=== PATIENT | female | born 1985 | race Asian ===

== ENCOUNTER 2024-07-21 10:42 | Inpatient (IN) | payer OTHER ==
[~2024-07-21] VITALS: Ht 160 cm; Wt 46.7 kg
[2024-07-21] MEDS: LACTATED RINGERS 1,000 ML IV SCH (11:25)
[2024-07-21] MEDS: AZITHROMYCIN 500 MG TABLET PO ONE (11:25)
[2024-07-21 11:27] LABS: BASOPHILS % 0.6 % (0.0-2.0); EOSINOPHILS % 2.5 % (0.0-5.0); HEMATOCRIT. 41.8 % (36.0-48.0); HEMOGLOBIN. 14.2 g/dL (12.0-16.0); LYMPHOCYTES % 15.8 % (20.0-50.0); MEAN CORPUSCULAR HGB CONC 33.9 g/dL (31.0-37.0); MEAN CORPUSCULAR VOLUME 91.5 fL (81.0-99.0); MEAN PLATELET VOLUME 8.7 fl (7.4-10.4); MONOCYTES % 6.2 % (2.0-8.0); NEUTROPHILS % 74.9 % (40.0-76.0); PLATELET 228 x1000/uL (130-400); RED BLOOD CELL COUNT 4.57 mill/uL (4.2-5.4); WHITE BLOOD COUNT 8.4 x1000/uL (4.5-11.0)
[2024-07-21 11:38] LABS: HCG SCREEN NEGATIVE
[2024-07-21 11:45] LABS: CHLORIDE 103 mEq/L (98-107); SODIUM 138 mEq/L (136-145)
[2024-07-21 11:47] LABS: CARBON DIOXIDE 20 mEq/L (21-32)
[2024-07-21 11:52] LABS: CREATININE 0.9 mg/dL (0.6-1.0); GLUCOSE 74 mg/dL (70-105); UREA NITROGEN BLOOD 18 mg/dL (9-23)
[2024-07-21 11:54] LABS: ALANINE AMINOTRANSFERASE 9 IU/L (10-49); ASPARTATE AMINOTRANSFERASE 14 IU/L (<34); BILIRUBIN DIRECT 0.4 mg/dL (<=3.0); BILIRUBIN TOTAL 1.9 mg/dL (0.1-1.0); PROTEIN TOTAL 8.1 g/dL (6.0-8.3)
[2024-07-21] MEDS ORDERED: CLONIDINE 0.1MG TABLET PO PRN (12:30)
[2024-07-21] MEDS ORDERED: ZOLPIDEM TARTRATE 5MG TABLET PO PRN (12:30)
[2024-07-21] MEDS ORDERED: ACETAMINOPHEN 325MG TABLET PO PRN (12:30)
[2024-07-21] MEDS ORDERED: NALOXONE HCL 0.4MG/ML VIAL IV PRN (13:00)
[2024-07-21] MEDS: PANTOPRAZOLE SODIUM 40 MG/VIAL IV SCH (13:24)
[2024-07-21] MEDS: ENOXAPARIN 40MG/0.4ML SYR SUBCUT SCH (13:24)
[2024-07-21] MEDS: SODIUM CHLORIDE 0.9% 1,000 ML IV SCH (13:26)
[2024-07-21] MEDS: AZITHROMYCIN 500MG/250ML 250 ML IV SCH (13:38)
[2024-07-21 14:00] VITALS: BP 98/66; PULSE 93; RESP 18; TEMP 36
[2024-07-21] MEDS: HYDROCODONE/ACETAMINOPHEN 5/325MG TABLET PO PRN (15:14)
[2024-07-21] MEDS: ONDANSETRON HCL 4MG/2ML INJ IV PRN (15:19)
[2024-07-21 16:00] VITALS: BP 97/55; PULSE 79; RESP 17; TEMP 36.6; O2SAT 100
[2024-07-21 19:14] LABS: HEPATITIS B SURFACE ANTIGEN NEGATIVE (Negative)
[2024-07-21 19:36] LABS: HEPATITIS A AB IGM NEGATIVE (Negative)
[2024-07-21 19:37] LABS: HEPATITIS B CORE AB IGM NEGATIVE (Negative)
[2024-07-21 19:38] LABS: HEPATITIS C AB NON REACTIVE (Neg) (Negative)
[2024-07-21 20:00] VITALS: BP 99/44; PULSE 76; RESP 18; TEMP 36.7; O2SAT 100
[2024-07-21 20:40] VITALS: BP 90/60; PULSE 72; RESP 18; TEMP 36.5
[2024-07-22] VITALS: BP 96/50; PULSE 73; RESP 18; TEMP 36.6
[2024-07-22 04:00] VITALS: BP 99/53; PULSE 82; RESP 18; TEMP 36.7
[2024-07-22 06:54] LABS: BASOPHILS % 0.5 % (0.0-2.0); EOSINOPHILS % 2.8 % (0.0-5.0); HEMATOCRIT. 31.9 % (36.0-48.0); HEMOGLOBIN. 10.8 g/dL (12.0-16.0); LYMPHOCYTES % 23.2 % (20.0-50.0); MEAN CORPUSCULAR HEMOGLOBIN 31.7 pg (28.0-32.0); MEAN CORPUSCULAR HGB CONC 33.8 g/dL (31.0-37.0); MEAN CORPUSCULAR VOLUME 93.9 fL (81.0-99.0); MEAN PLATELET VOLUME 8.5 fl (7.4-10.4); MONOCYTES % 7.6 % (2.0-8.0); NEUTROPHILS % 65.9 % (40.0-76.0); PLATELET 163 x1000/uL (130-400); RED CELL DISTRIBUTION WIDTH 13.2 % (11.6-14.6)
[2024-07-22 07:03] LABS: CARBON DIOXIDE 19 mEq/L (21-32); CHLORIDE 110 mEq/L (98-107); POTASSIUM 4.2 mEq/L (3.5-5.1); SODIUM 141 mEq/L (136-145)
[2024-07-22 07:03] LABS: CLARITY URINE CLEAR (CLEAR); COLOR URINE YELLOW (YELLOW); GLUCOSE URINE NEGATIVE (NEGATIVE); KETONES URINE 3+ (NEGATIVE); LEUKOCYTE ESTERASE URINE NEGATIVE (NEGATIVE); NITRITE URINE NEGATIVE (NEGATIVE); OCCULT BLOOD URINE NEGATIVE (NEGATIVE); PROTEIN URINE NEGATIVE (NEGATIVE); SPECIFIC GRAVITY URINE 1.014 (1.005-1.030); UROBILINOGEN URINE 0.2 E.U./dL (0.2-1.0)
[2024-07-22 07:04] LABS: CALCIUM 8.4 mg/dL (8.7-10.4)
[2024-07-22 07:04] LABS: UCG KIT EXPIRATION DATE 11/27/2026; UCG KIT LOT# 946166; UCG SCREEN NEGATIVE
[2024-07-22 07:08] LABS: CREATININE 0.7 mg/dL (0.6-1.0); GLUCOSE 72 mg/dL (70-105)
[2024-07-22 07:09] LABS: UREA NITROGEN BLOOD 8 mg/dL (9-23)
[2024-07-22 07:21] LABS: *AMPHETAMINES SCREEN URINE NEGATIVE (NEGATIVE); *BARBITURATES SCREEN URINE NEGATIVE (NEGATIVE); *BENZODIAZEPINES SCREEN URINE NEGATIVE (NEGATIVE); *COCAINE SCREEN URINE NEGATIVE (NEGATIVE); CANNABINOID URINE SCREEN NEGATIVE (NEGATIVE); ECSTASY MDMA SCREEN URINE NEGATIVE (NEGATIVE); METHADONE URINE SCREEN NEGATIVE (NEGATIVE); OPIATES URINE SCREEN PRESUMPTIVE POSITIVE (NEGATIVE); PHENCYCLIDINE URINE SCREEN NEGATIVE (NEGATIVE)
[2024-07-22 08:00] VITALS: BP 103/60; PULSE 78; RESP 18; TEMP 36.9; O2SAT 100
[2024-07-22 12:00] VITALS: BP 100/63; PULSE 75; RESP 18; TEMP 36.8; O2SAT 100
[2024-07-22] MEDS ORDERED: AZITHROMYCIN 500MG/250ML 250 ML IV SCH (13:00)
[2024-07-22] MEDS ORDERED: MAGNESIUM/ALUMINUM HYDROXIDE/SIMETHICONE 30ML UDC PO PRN (15:00)
[2024-07-22] MEDS: MAGNESIUM/ALUMINUM HYDROXIDE/SIMETHICONE 30ML UDC PO PRN (15:10)
[2024-07-22 16:00] VITALS: BP 97/55; PULSE 68; RESP 18; TEMP 36.9; O2SAT 98
[2024-07-22 20:00] VITALS: BP 97/54; PULSE 70; RESP 18; TEMP 36.5; O2SAT 98
[2024-07-23] VITALS: BP 95/49; PULSE 64; RESP 18; TEMP 36.4; O2SAT 98
[2024-07-23 04:00] VITALS: BP 105/67; PULSE 60; RESP 18; TEMP 36.4; O2SAT 97
[2024-07-23 06:16] LABS: CHLORIDE 108 mEq/L (98-107); POTASSIUM 4.1 mEq/L (3.5-5.1); SODIUM 139 mEq/L (136-145)
[2024-07-23 06:17] LABS: CARBON DIOXIDE 23 mEq/L (21-32)
[2024-07-23 06:18] LABS: CALCIUM 8.5 mg/dL (8.7-10.4)
[2024-07-23 06:22] LABS: CREATININE 0.6 mg/dL (0.6-1.0); GLUCOSE 87 mg/dL (70-105)
[2024-07-23 06:23] LABS: UREA NITROGEN BLOOD < 5 mg/dL (9-23)
[2024-07-23 06:49] LABS: BASOPHILS % 0.8 % (0.0-2.0); EOSINOPHILS % 3.3 % (0.0-5.0); HEMATOCRIT. 32.2 % (36.0-48.0); HEMOGLOBIN. 11.1 g/dL (12.0-16.0); LYMPHOCYTES % 37.8 % (20.0-50.0); MEAN CORPUSCULAR HEMOGLOBIN 31.7 pg (28.0-32.0); MEAN CORPUSCULAR HGB CONC 34.5 g/dL (31.0-37.0); MEAN CORPUSCULAR VOLUME 91.8 fL (81.0-99.0); MEAN PLATELET VOLUME 8.8 fl (7.4-10.4); MONOCYTES % 9.3 % (2.0-8.0); NEUTROPHILS % 48.8 % (40.0-76.0); PLATELET 153 x1000/uL (130-400); RED BLOOD CELL COUNT 3.51 mill/uL (4.2-5.4); RED CELL DISTRIBUTION WIDTH 13.1 % (11.6-14.6)
[2024-07-23] MEDS ORDERED: LEVO-65 MT (10:16)
[2024-07-23 10:58] VITALS: BP 105/67; PULSE 60; TEMP 97.5; O2SAT 99
[2024-07-23] MEDS ORDERED: LEVOFLOXACIN 250MG TABLET PO SCH ×2 (11:00)
[2024-07-23] MEDS ORDERED: LEVOFLOXACIN 500MG TABLET PO SCH (11:00)
== END 2024-07-23 11:50 | disposition home or self-care (01) | DRG 372 ==
LOC: EDSEX 10:42 → ER 10:42 → 8EST 12:20 → EDBEDREQ 12:45 → EDBEDREQTM 12:45 → ENRESERV 12:54
PROVIDERS: ADMIT Internal Medicine; ATTEND Internal Medicine
DX: A04.9 Bacterial intestinal infection, unspecified (principal); Z68.1 Body mass index [BMI] 19.9 or less, adult; A08.4 Viral intestinal infection, unspecified; D72.810 Lymphocytopenia; Z91.041 Radiographic dye allergy status; R63.4 Abnormal weight loss; R73.03 Prediabetes
CPT/HCPCS: 36415; 80048; 80076; 80305; 81003; 81025; 84703; 85025; 86705; 86709; 87015; 87045; 87340; 87427; 87449; 87493; 89055; 93970; 99285; J0456; J1650; J2405; J2470